=== PATIENT | female | born 1965 | race Caucasian/White ===

== ENCOUNTER 2020-10-22 08:48 | Emergency (ER) | payer OTHER, SELFPAY ==
[2020-10-22 08:54] VITALS: BP 188/104; PULSE 112; RESP 16; TEMP 37.1; O2SAT 96
--- NOTE | 2020-10-22 10:24 | ED.GENADULT ---
HPI - General Adult General Chief complaint: Extremity Problem,Nontraumatic Stated complaint: leg pain Time Seen by Provider: 10/22/20 09:41 Source: patient History of Present Illness HPI narrative: Patient is a 55 y/o male complain of chronic left leg worsening for last 2 days. She states she has chronic pain for years. She describes her pain as shocking sensation and rates it as 10/10. She states that laying down aggravates her pain and walking helps with her pain. She also has some back pain. She has no difficulty with urination or bowel movement. She is able to ambulate. Related Data Allergies Allergy/AdvReac Type Severity Reaction Status Date / Time No Known Allergies Allergy Verified 10/22/20 08:58 Review of Systems Constitutional: Constitutional: Denies chills, Denies fever(s), Denies headache(s) and Denies weakness Eyes: Eyes: Denies blurry vision ENT: Denies headache(s) and Denies neck pain Cardiovascular: Cardiovascular: Denies chest pain and Denies dyspnea Respiratory: Respiratory: Denies cough and Denies dyspnea Gastrointestinal: Gastrointestinal: Denies abdominal pain, Denies diarrhea, Denies nausea and Denies vomiting Genitourinary: Genitourinary: Denies hematuria and Denies dysuria Musculoskeletal: Musculoskeletal: Reports as per HPI, Reports back pain, Denies neck pain and Reports other (left leg pain) Neurologic: Denies headache(s) and Denies weakness [facility] Social History Social History Smoking status: Former smoker Alcohol intake: never Exam Const: General: no acute distress and well developed Orientation/consciousness: oriented to person, oriented to place, oriented to time and patient oriented x3 HENMT: Head: normocephalic Ears: external ears normal General nose exam: Normal external nose present Eyes: General: appearance normal, both eyes and all related structures Conjunctivae: conjunctivae normal Neck: Neck: normal visual inspection and full ROM Chest: Chest palpation & inspection: normal inspection of the chest and no tenderness Resp: Effort & Inspection: normal respiratory effort Auscultation: clear to auscultation bilaterally Cardio: Rate: regular rate Rhythm: regular rhythm GI: GI Palp: No abdominal tenderness and Yes Soft to palpation Skin: General skin exam: normal color and turgor normal Neuro: General: oriented to person, oriented to place, oriented to time and patient oriented x3 Cognition (Neuro): normal cognition Extrem: General: normal to inspection, full ROM and no pedal edema Right lower extremity: foot Details: other (right leg in braces) Left lower extremity: full ROM Psych: Appearance: grossly normal Mental Status: mental status grossly normal Affect: normal affect Course Reevaluation(s) Reevaluation #1: Offered patient steroids and muscle relaxer. However, patient declined and stated that those usually do not help. Date: 10/22/20 Vital Signs Vital signs: Vital Signs Temperature 37.1 C 10/22/20 08:54 Pulse Rate 112 H 10/22/20 08:54 Respiratory Rate 16 10/22/20 08:54 Blood Pressure 188/104 H 10/22/20 08:54 Pulse Oximetry 96 10/22/20 08:54 Temperature 36.8 C 10/22/20 11:21 Pulse Rate 93 10/22/20 11:21 Respiratory Rate 16 10/22/20 11:21 Blood Pressure 171/99 H 10/22/20 11:21 Pulse Oximetry 99 10/22/20 11:21 Medical Decision Making Vital Signs Vital Signs: Vital Signs Temperature 37.1 C 10/22/20 08:54 Pulse Rate 112 H 10/22/20 08:54 Respiratory Rate 16 10/22/20 08:54 Blood Pressure 188/104 H 10/22/20 08:54 Pulse Oximetry 96 10/22/20 08:54 Temperature 36.8 C 10/22/20 11:21 Pulse Rate 93 10/22/20 11:21 Respiratory Rate 16 10/22/20 11:21 Blood Pressure 171/99 H 10/22/20 11:21 Pulse Oximetry 99 10/22/20 11:21 Lab Data Result diagrams: 10/22/20 10:31 10/22/20 10:31 Labs: Lab Results 04
[2020-10-22 10:39] LABS: Basophils Absolute Auto 0.1 K/mm3 (0.0-0.1); Basophils Percent Auto 0.8 % (0.2-1.2); Eosinophils Absolute Auto 0.2 K/mm3 (0-0.3); Eosinophils Percent Auto 2.1 % (0-4.4); Hematocrit 41.4 % (37.0-47.0); Hemoglobin 13.4 g/dL (12.0-15.0); Immature Granulocyte Absolute 0.02 K/mm3 (0.00-0.031); Immature Granulocyte Percent A 0.2 % (0-0.5); Lymphocytes Absolute Auto 2.46 K/mm3 (0.9-3.2); Lymphocytes Percent Auto 29.2 % (18.3-44.2); Mean Corpuscular HGB Conc 32.4 g/dl (32-36); Mean Corpuscular Hemoglobin 29.4 pg (26-34); Mean Corpuscular Volume 90.8 fl (80-100); Mean Platelet Volume 9.3 fl (7.4-10.4); Monocytes Absolute Auto 0.5 K/mm3 (0.1-0.6); Neutrophils Absolute Auto 5.2 K/mm3 (1.3-6.7); Neutrophils Percent Auto 61.7 % (45.5-73.1); Platelet Count Result 314 k/mm3 (150-375); Red Blood Count 4.56 M/mm3 (4.2-5.4); Red Cell Distribution Width 12.7 % (11.5-14.5); White Blood Count 8.4 K/mm3 (4.5-10.0)
[2020-10-22 10:48] LABS: Anion Gap 7 mmol/L (8-16); Blood Urea Nitrogen 13 mg/dL (7-17); Calcium 9.4 mg/dL (8.4-10.2); Carbon Dioxide 28 mmol/L (22-30); Chloride 105 mmol/L (98-107); Estimated CRCL calculation 88 ml/min; Estimated Glomerular Filt Rate > 60; Glucose 116 mg/dL (65-105); Potassium 4.6 mmol/L (3.4-5.0); Sodium 140 mmol/L (137-145)
[2020-10-22] MEDS: KETOROLAC 15 MG/ML VIAL (*BKC) IV PUSH (10:59)
[2020-10-22 11:21] VITALS: BP 171/99; PULSE 93; RESP 16; TEMP 36.8; O2SAT 99
== END 2020-10-22 11:22 | disposition home or self-care (01) ==
PROVIDERS: Emergency Provider Emergency Medicine; PCP Family Medicine
DX: M54.32 Sciatica, left side (principal); M79.605 Pain in left leg; G89.29 Other chronic pain; Z87.891 Personal history of nicotine dependence
CPT/HCPCS: 36415; 80048; 85025; 96374; 99284; J1885

== ENCOUNTER 2025-06-02 11:47 | Emergency (ER) | payer OTHER, SELFPAY ==
--- NOTE | ~2025-06-02 | XR_ITS ---
Examination: XR hand RT 2V Clinical History: injury, pain in 2nd MCP joint, pt unable to remove ring Comparison: None Technique: 3 views right hand Findings/impression: 1. No fracture or dislocation. Reviewed, dictated and finalized at location R. [employer] SYSTEM[employer] ENGINEER
[2025-06-02 11:51] VITALS: BP 104/65; PULSE 73; RESP 16; TEMP 37.1; O2SAT 98
--- NOTE | 2025-06-02 13:26 | ED.EXTPRO ---
HPI - Extremity Problem General Chief complaint: Extremity Problem,Nontraumatic Stated complaint: broken knuckle? R hand Time Seen by Provider: 06/02/25 13:04 Source: patient Mode of arrival: ambulatory Limitations: no limitations History of Present Illness HPI Narrative: 60 years old white female came to the ED by private car complaining of pain at the dorsal side of right hand after smashed in the hand at the sliding door at home yesterday. No other injuries. Related Data Allergies Allergy/AdvReac Type Severity Reaction Status Date / Time No Known Allergies Allergy Verified 06/02/25 11:54 Review of Systems Review of Systems: All systems reviewed & are unremarkable except as noted in HPI and below PMFSH Social History Social History Smoking status: Former smoker Alcohol intake: never Exam Narrative: General appearance: Well-developed, well-nourished Skin: Normal color Head: Normocephalic, nontraumatic Vascular: Normal peripheral pulses, normal capillary refill. Musculoskeletal: Diffuse tenderness at the dorsal side of the right hand, no bruises, no swelling, no deformity Neurologic: Alert and oriented ?3, Course Vital Signs Vital signs: Vital Signs Temperature 37.1 C 06/02/25 11:51 Pulse Rate 73 06/02/25 11:51 Respiratory Rate 16 06/02/25 11:51 Blood Pressure 104/65 06/02/25 11:51 Pulse Oximetry 98 06/02/25 11:51 Oxygen Delivery Room Air 06/02/25 11:51 Temperature 37.1 C 06/02/25 11:51 Pulse Rate 73 06/02/25 11:51 Respiratory Rate 16 06/02/25 11:51 Blood Pressure 104/65 06/02/25 11:51 Pulse Oximetry 98 06/02/25 11:51 Oxygen Delivery Room Air 06/02/25 11:51 MDM MDM Narrative Medical decision making narrative: Differential diagnosis include fracture versus contusion X-ray of the right hand showed no acute osseous abnormality Differential Diagnosis Differential Diagnosis: Fracture versus contusion Critical Care Time Critical Care Time Critical Care Time: No Discharge Plan Discharge Clinical Impression: Contusion of hand, right Patient Disposition: Home Condition: Stable Instructions: Contusion in Adults (ED) Additional Instructions: RETURN IF SYMPTOMS ARE WORSENING , CALL YOUR FAMILY PHYSICIAN FOR APPOINTMENT, TAKE TYLENOL IBUPROFEN NEEDED FOR ACHES AND PAIN, CONTINUE HOME MEDICATIONS. KEEP HAND ELEVATED, ICE PACK 20 MINUTES/HOUR FOR THE NEXT 24 HOURS Patient Language: Hebrew Follow-up/Referrals: Cheli,Indira Mosher APRN [Primary Care Provider, Unknown]
--- OUTSIDE RECORDS SUMMARY | 2025-06-02 13:26 | XMS_ITS | Clinical Summary ---
Author Organization [facility] Address [address] [place] [address] Phone Care Team Providers Care Business Advisor Name Role Phone Indira Bower NP Primary Care Provider +1- [phone] Allergies No known active allergies Medications DULoxetine DR (CYMBALTA) 30 mg capsule Take 30 mg by mouth daily Active methadone (DOLOPHINE) 10 mg tablet TAKE 1 TABLET BY MOUTH EVERY 6 TO 8 HOURS WITH ADDITIONAL 1/2 TABLET AT BEDTIME. MAXIMUM DAILY DOSE IS 3 AND 1/2 TABLETS [address] (CYMBALTA) 60 mg capsule Take 1 capsule (60 mg total) by mouth 90 mg hs Active amLODIPine (NORVASC) 10 mg tablet Take 1 tablet (10 mg total) by mouth daily 90 tablet 3 5 Active aspirin 81 mg enteric coated tablet Take 1 tablet (81 mg total) by mouth daily 90 tablet 3 5 Active albuterol HFA (ProAir HFA) 90 mcg/actuation inhalerIndication s:Mixed simple and mucopurulent chronic bronchitis (HCC) Inhale 2 puffs every 4 (four) hours as needed for wheezing or shortness of breath 18 g 3 5 Active blood pressure monitor kitIndications:Hy pertension, essential 1 Units once for 1 dose Use to check blood pressure daily 1 kit 5 Active lisinopriL (PRINIVIL,ZESTRIL ) 20 mg tablet Take 1 tablet (20 mg total) by mouth daily 90 tablet 3 06/16/12/12/19 26 Active inhalational spacing device spacerIndications :Mixed simple and mucopurulent chronic bronchitis (HCC) 1 Units as needed (use with inahlers) 1 each 5 Active ibandronate (BONIVA) 150 mg tablet Take 1 tablet (150 mg total) by mouth every 30 (thirty) days Take in AM with glass of water prior to food, don't lie down for 30 minutes. 3 tablet 4 5 01/19/20 26 Active budesonide-glycop yr-formoterol (Breztri Aerosphere) 160-9-4.8 mcg/actuation inhalerIndication s:Mixed simple and mucopurulent chronic bronchitis (HCC) INHALE 2 PUFFS BY MOUTH TWICE DAILY 10.7 g 5 Active Active Problems Problem Noted Date Diagnosed Date Pre-diabetes 12/11/2024 Assessment & Plan (12/12/2024 10:30 AM CDT): Documented on recent lab work. A1c 6.0. Nonpharmacological interventions such as low carb diet, high in vegetables and low glycemic fruits discussed. Educated on importance of physical activity. Encourage diabetic eye exam. Discussed signs and symptoms of hypoglycemia and need to present to the ED. Follow up in 6 months or sooner if needed. Patient verbalizes understanding regarding plan of care and all questions answered. Mixed simple and mucopurulent chronic bronchitis 11/28/2024 Assessment & Plan (12/11/2024 3:33 PM CDT): Orders: inhalational spacing device spacer; 1 Units as needed (use with inahlers) Assessment & Plan (11/28/2024 12:04 PM CDT): Orders: albuterol HFA (ProAir HFA) 90 mcg/actuation inhaler; Inhale 2 puffs every 4 (four) hours as needed for wheezing or shortness of breath wldgpqqviy-nzxuyvnn-jgopawlkpz (Breztri Aerosphere) 160-9-4.8 mcg/actuation inhaler; Inhale 2 puffs 2 (two) times a day Morbid obesity with BMI of 40.0-44.9, adult 08/2024 Assessment & Plan (11/28/2024 12:04 PM CDT): Discussed the patient's BMI. The BMI is above average. BMI management plan is completed. BMI Follow-up includes: nutrition counseling, exercise counseling and education provided. Encouraged regular physical activity--moderate activity for a total of 150 minutes per week over 3-5 days. Encouraged healthy diet with regular fresh fruits and vegetables limited in processed carbohydrates. Hypertension, essential 11/28/2024 Assessment & Plan (12/11/2024 3:33 PM CDT): Assessment & Plan (11/28/2024 12:04 PM CDT): Orders: Albumin Creatinine Ratio, Urine; Future Comprehensive metabolic panel; Future blood pressure monitor kit; 1 Units once for 1 dose Use to check blood pressure daily Ambulatory referral to Cardiology; Future Transthoracic Echo (TTE) Complete W Doppler/CF; Future ECG 12 lead; Future Mixed hyperlipidemia 11/28/2024 Assessment & Plan (11/28/2024 12:04 PM CDT): Historically has had elevated cholesterol. Not treated currently. Repeat levels pending. Orders: Lipid panel; Future Presence of neurostimulator 11/28/2024 Overview (11/28/2024): dorsal column stimulation system with a Medtronic system Encounter for screening colonoscopy 11/28/2024 Resolved Problems Problem Noted Date Diagnosed Date Resolved Date Sciatic nerve pain, left 11/28/202408/2024 Foot arch pain 11/28/2024 11/28/2024 Failed back surgical syndrome 11/28/2024 11/28/2024 Elevated blood sugar 11/28/2024 025 Assessment & Plan (11/28/2024 12:04 PM CDT): A1c pending Orders: Hemoglobin A1c; Future Acute right-sided low back pain with sciatica 06/14/20 19 11/28/2024 Ankle contracture 07/28/2011 11/28/2024 Arthralgia of ankle 07/27/2011 11/29/19 25 Encounters Date Type Department Care Team Description 05/30/2025 Hospital Encounter [facility] [address] [place] [id number] Ronni Last MD 03/08/[address] [facility] Primary Care at [address] [address] Indira Bower NP from Last 3 Months Immunizations Immunization Administration Dates Next Due Influenza, Quadrivalent, Spl it, Preservative Free, Intramuscular 04/14/2021 Pneumococcal Polysaccharide PPV23 04/21/2018 Surgical History Surgery Date Site/Laterality Comments APPENDECTOMY 06/28/1987 BACK SURGERY 06/28/1999 x3,1999,2000,2020 lumbar ANKLE SURGERY Right x3 SECTION 12-30-82 ABDOMINAL SURGERY 1963 x 3 INSERTION / PLACEMENT / REVISION NEUROSTIMULATOR 06/28/2019 BREAST CYST ASPIRATION 06/28/1987 - 06/27/1988 Right benign Medical History Medical History Date Comments Hypertension Hypertension Hx 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 Hx Other Medical bowel surgery, back surgery, Depression Osteoporosis Asthma Anxiety Neuromuscular disorder Chronic bronchitis (HCC) Family History Medical History Relation Name Comments Heart disease Father Stroke Father Arthritis Mother Cancer Mother Relation Name Status Comments Father Mother Social History Tobacco Use Types Packs/Day Years Used Date Smoking Tobacco: Former Cigarettes 1 30.9 S tarted: 11/21/1983 Passive Smoke Exposure: Past Smokeless Tobacco: Never Alcohol Use Standard Drinks/Week Comments Yes 0 (1 standard drink = 0.6 oz pur e alcohol) AUDIT-C Answer Date Recorded Q1: How often do you have a drink containing alcohol? Never 11/28/2024 Q2: How many drinks containi ng alcohol do you have on a typical day when you are drinking? Patient does not drink Q3: How often do you have si x or more drinks on one occasion? 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 Gender Identity Not on file Sexual Orientation Not on file Obstetrics History Para Term AB IAB SAB Ectopic Multiple Livin g Live Births 1 1 Date Outcome GA Total Labor Labor/2nd/3rd Weight Sex Type Anes PTL Jessie A1 A5 Name Clin Last Filed Vital Signs Vital Sign Reading Time Taken Comments Blood Pressure 145/82 12/19/2024 10:24 AM CDT Pulse 77 12/19/2024 10:24 AM CDT Temperature 36.3 C (97.4 F) 12/11/2024 2:59 PM CDT Respiratory Rate 16 12/11/2024 2:59 PM CDT Oxygen Saturation 97% 12/11/2024 2:59 PM CDT Inhaled Oxygen Concentration - - Weight 99.8 kg (220 lb) 01/09/2025 8:34 AM CDT Height 152.4 cm (5') 01/09/2025 8:34 AM CDT Body Mass Index 42.97 01/09/2025 8:34 AM CDT Plan of Treatment Health Maintenance Due Date Last Done Comments Cervical Cancer Screening 1965 Colon Cancer Screening-Colonoscopy 1963 DTaP/Tdap/Td Vaccine (1 - Tdap) 1974 Zoster Vaccine (1 of 2) 2013 Pneumococcal vaccine <65 (2 of 2 - PCV) 04/21/2019 04/21/2018 Influenza Vaccine (#1) 2025 04/14/2021 Covid-19 Vaccine (3 - Moderna risk series) 11/28/2025 05/12/2021, 04/14/2021 Postponed from 06/09/2021 (Patient declined, but will receive in the future) Depression Screening 11/28/2025 11/28/2024 Regular Well Visit/Exam 18-64 11/28/2025 11/28/2024 Breast Cancer Screening-Mammogram 01/10/2026 01/10/2025 Lung Cancer Screening 01/10/2026 01/09/2025 Hepatitis C Screening Completed 11/28/2024 Hepatitis B Screening Discontinued Medical Devices Implanted Type Area Outreach And Education Social Worker Device Identifier Shelf Expiration Date Model / Serial / Lot Neurostimulator Neurostimulator Back Medtronic [id number] / / [id number] Neurostimulator Neurostimulator Back Medtronic [id number] / / [id number] Procedures Procedure Name Priority Date/Time Associated Diagnosis Comments SCREENING MAMMOGRAM BILATERAL W YOMI Schedule Routine, Read Routine (OP Routine) 01/10/2025 11:38 AM CDT Breast cancer screening by mammogram CT LUNG CANCER SCREENING Schedule Routine, Read Routine (OP Routine) 01/09/2025 8:34 AM CDT History of nicotine dependence HEPATITIS C ANTIBODY Routine 11/28/2024 10:40 AM CDT Need for hepatitis C screening test from Last 3 Months or Most Recently Relevant to Health Maintenance Results * Screening Mammogram Bilateral W Yomi (01/10/2025 11:38 AM CDT) Anatomical Region Laterality Modality Breast Bilateral Mammography Impressions 01/10/2025 11:55 AM CDT Bilateral No evidence of malignancy in either breast. OVERALL BI-RADS FINAL ASSESSMENT: 1 - Negative RECOMMENDATION: Recommend bilateral annual screening mammography. Narrative 01/10/2025 11:55 AM CDT EXAMINATION: Screening Mammogram Bilateral W Yomi: 01/10/2025 COMPARISON: This is the patient's baseline mammogram. TECHNIQUE: Mammography was performed with 2D and digital breast tomosynthesis (DBT) images. CAD was utilized. BREAST PARENCHYMAL COMPOSITION: The breasts are almost entirely fatty. FINDINGS: Bilateral There is no suspicious mass, calcification, or architectural distortion in either breast. Indira Bower CARDIOPULMONARY PHYSICAL THERAPIST IMG MAMMO PROCEDURES Final Result * CT Lung Cancer Screening (01/09/2025 8:34 AM CDT) Anatomical Region Laterality Modality Chest N/A Computed Tomogra phy 01/17/2025 7:23 AM CDT Narrative 01/17/2025 7:25 AM CDT EXAM DESCRIPTION: CT LUNG CANCER SCREENING REASON FOR STUDY: Screening CT of the chest in a former smoker with a 20 pack year smoking history. Additional history: None. TECHNIQUE: Low dose CT scan of the chest was performed without intravenous contrast using helical scanning technique. The exam extends from the lung apices through the lung bases. Automatic exposure control was used as a dose optimization technique. NOTE: This study was performed for the specific purposes of lung cancer screening and is not an alternative to diagnostic chest CT. RADIATION DOSE: CT dose index volume (CTDIvol) = 5.1 mGy COMPARISON: None FINDINGS: SMOKING RELATED LUNG DISEASE: Mild emphysematous change. LUNG NODULES: No suspicious pulmonary nodules. CORONARY ARTERY CALCIFICATION: None OTHER: The heart is normal in size. No mediastinal or hilar lymphadenopathy seen. No pneumothorax or pleural effusion is present. Neurostimulator leads are noted extending into the midthoracic region. There is a right curvature of the thoracic spine. IMPRESSION: 1. No suspicious pulmonary nodules. Lung-RADS category 1: Negative. Recommendation: Low dose Screening CT of chest in 12 months. THIS IS AN ELECTRONICALLY VERIFIED FINAL REPORT 01/17/2025 7:25 AM - Electronically signed by Quincy Smith M.D. BS: BS Report ID: [id number] Reading Location: [place] [address] Procedure Note Quincy Smith MD - 01/17/2025 EXAM DESCRIPTION: CT LUNG CANCER SCREENING REASON FOR STUDY: Screening CT of the chest in a former smoker with a20 pack year smoking history. Additional history: None. TECHNIQUE: Low dose CT scan of the chest was performed without intravenous contrast using helical scanning technique. The exam extends from the lung apices through the lung bases. Automatic exposure control was used as adose optimization technique. NOTE: This study was performed for the specific purposes of lung cancer screening and is not an alternative to diagnostic chest CT. RADIATION DOSE: CT dose index volume (CTDIvol) = 5.1 mGy COMPARISON: None FINDINGS: SMOKING RELATED LUNG DISEASE: Mild emphysematous change. LUNG NODULES: No suspicious pulmonary nodules. CORONARY ARTERY CALCIFICATION: None OTHER: The heart is normal in size. No mediastinal or hilarlymphadenopathy seen. No pneumothorax or pleural effusion is present. Neurostimulatorleads are noted extending into the midthoracic region. There is a rightcurvature of the thoracic spine. IMPRESSION: 1. No suspicious pulmonary nodules. Lung-RADS category 1: Negative. Recommendation: Low dose Screening CT of chest in 12 months. THIS IS AN ELECTRONICALLY VERIFIED FINAL REPORT 01/17/2025 7:25 AM - Electronically signed by Quincy Smith M.D. BS: ARBEN Report ID: [id number] Reading Location: [id number] Indira Bower CARDIOPULMONARY PHYSICAL THERAPIST IMG CT PROCEDURES Final Re sult * Hepatitis C antibody Blood (11/28/2024 10:40 AM CDT) Hep C Ab Nonreactive Nonreactive Comment: Interpretive Data Nonreactive: Antibodies to HCV not detected. Does NOT exclude the possibility of recent exposure to HCV. Equivocal: Equivocal for HCV antibodies. Supplemental molecular testing will be automatically performed to determine infection status in accordance with current CDC screening recommendations. Reactive: Positive for HCV antibodies. This may represent current or past HCV infection. Supplemental molecular testing will be automatically performed to determine current infection status in accordance with current CDC screening recommendations. Interpretive data was last revised on 2019. Blood 11/28/2024 10:4 0 AM CDT 11/28/2024 2:14 PM CDT Indira Bower NP LAB MICROBIOLOGY - GENERAL ORDERABLES Final Result [place] [address] [facility] Department [place] [address] from Last 3 Months or Most Recently Relevant to Health Maintenance Insurance [facility] Care Teams Business Advisor Relationship Specialty Start Date End Date Indira Bower NP [address] [facility] [address] [place] [address] PCP - General Internal Medicine 11/28/24
--- OUTSIDE RECORDS SUMMARY | 2025-06-02 13:26 | XMS_ITS | Encounter Summary ---
Author Organization [facility] Healthcare Address [address] [place] [address] Care Team Providers Care Rope Tow Operator Name Role Phone Indira Bower NP Primary Care Provider +1- [phone] Reason for Visit * Auth/Cert (Routine) Specialty Diagnoses / Procedures Referred By Contac t Referred To Contact Diagnoses Encounter for screening colonoscopy Encounter for screening colonoscopy [Z12.11] Procedures WI COLONOSCOPY FLX DX W/COLLJ SPEC WHEN PFRMD COLONOSCOPY Referral ID Status Reason Start Date Expiration Date Visits Re quested Visits Authorized [id number] 1 1 Encounter Details Date Type Department Care Team (Late st Contact Info) Description 05/30/2025 Hospital Encounter [facility] [address] [place] [address] Ronni Last MD [address] [place] [address] [address] [place] [address] Social History Tobacco Use Types Packs/Day Years [...] on file 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 Never 11/28/2024 9:36 AM Venkat Murillo MA Q2: How many drinks containing alcohol do you have on a typical day when you are drinking? Patient does not drink 11/28/2024 9:36 AM Ivy Murillo MA Q3: How often do you have six or more drinks on one occasion? Never 11/28/2024 9:36 AM Venkat Murillo MA documented as of this encounter Plan of Treatment Not on file documented as of this encounter Visit Diagnoses Diagnosis Encounter for screening colonoscopy- Primary documented in this encounter Admitting Diagnoses Diagnosis Encounter for screening colonoscopy documented in this encounter Care Teams Rope Tow Operator Relationship Specialty Start Date End Date Indira Bower NP [address] [facility] [address] [place] [address] PCP - General Internal Medicine 11/28/24 documented as of this encounter
--- OUTSIDE RECORDS SUMMARY | 2025-06-02 13:26 | XMS_ITS | Clinical Summary ---
Author Organization [facility] Address [address] [place] [address] Care Team Providers Care Bark Fitter Name Role Phone Abbe Duff MD Primary Care Provider [phone] Source Comments [facility],non-owned Affiliates and Associated Physician Practices is amultiple site organization consisting of ambulatory clinics and hospital sitesin [place], [place], [place] and [place]. This disclosure is being madepursuant to the Care Everywhere program and may not contain all information available regarding this patient. Last updated 18.[facility] Allergies No known active allergies Medications * Be aware that medications may not be up to date on this document. Alwaysverify current medications with the patient. ibuprofen (MOTRIN) 800 MG tablet Take 800 mg by mouth every 6 hours as needed for Pain 9 Active albuterol HFA (PROVENTIL;VENT DENIS;PROAIR) 108 (90 Base) MCG/ACT inhaler as needed 9 Active cloNIDine (CATAPRES) 0.2 MG tabletIndicatio ns:Take if BP exceeds 145/90 Take by mouth once daily Reasons: Take if BP exceeds 145/90 0 9 Active DULoxetine (CYMBALTA) 30 MG capsule Take 30 mg by mouth once daily Active amLODIPine (NORVASC) 10 MG tablet Take 10 mg by mouth once daily 0 Active albuterol-iprat ropium (DUO-NEB) 0.5-2.5 (3) MG/3ML nebulizer solution USE 1 AMPULE IN NEBULIZER 4 TIMES DAILY FOR 7 DAYS THEN USE NEEDED 0 Active pregabalin (LYRICA) 300 MG capsule Take 300 mg by mouth 2 times daily 0 Active hydroCHLOROthia zide (HYDRODIURIL) 25 MG tablet TAKE 1 TABLET BY MOUTH ONCE DAILY IN THE MORNING 0 Active lisinopril (PRINIVIL; ZESTRIL) 40 MG tablet Take 40 mg by mouth once daily 0 Active vitamin D, ergocalciferol, (DRISDOL) 1.25 MG (49545 UT) capsule TK 1 C PO Q WK 0 Active clonazePAM (KLONOPIN) 0.5 MG tablet Take 0.5 mg by mouth as needed 0 Active omeprazole (PRILOSEC) 20 MG capsule TAKE 1 CAPSULE BY MOUTH EVERY DAY BEFORE A MEAL 1 Active WIXELA INHUB 250-50 MCG/DOSE inhaler INHALE 1 PUFF BY MOUTH EVERY 12 HOURS 1 Active busPIRone (BUSPAR) 10 MG tablet Take 10 mg by mouth 2 times daily 1 Active methocarbamol (ROBAXIN) 750 MG tablet Take 1 (one) tablet by mouth every 6 hours 120 tablet 1 Active HYDROcodone-anmol taminophen (NORCO) 10-325 MG tablet Take 1 (one) tablet by mouth every 6 hours as needed for Pain 12 tablet 1 Active Active Problems Problem Noted Date Diagnosed Date Acute right-sided low back pain with sciatica Ankle contracture 07/28/2011 Arthralgia of ankle 07/27/2011 Sciatic nerve pain, left Failed back surgical syndrome Social History Tobacco Use Types Packs/Day Years Used Date Smoking Tobacco: Former Cigarettes 1 34 1 983 - 2017 Smokeless Tobacco: Never Tobacco Cessation:Counseling Given: No Alcohol Use Standard Drinks/Week Comments No 0 (1 standard drink = 0.6 oz pur e alcohol) Comments No Sex and Gender Information Value Date Recorded Sex Assigned at Not on file Legal Sex Female 3:21 PM HEEL TURNER Gender Identity Not on file Sexual Orientation Not on file Last Filed Vital Signs Vital Sign Reading Time Taken Comments Blood Pressure 170/110 10/28/2020 2:30 PM CDT Pulse 100 10/28/2020 11:18 AM CDT Temperature 37 C (98.6 F) 10/28/2020 11:18 AM CDT Respiratory Rate 18 10/28/2020 11:18 AM CDT Oxygen Saturation 98% 10/28/2020 2:33 PM CDT Inhaled Oxygen Concentration 96% 06/17/2019 4 :30 PM HEEL TURNER Weight 90.7 kg (200 lb) 10/28/2020 11:18 AM CDT Height 152.4 cm (5') 10/28/2020 11:18 AM CDT Body Mass Index 39.06 10/28/2020 11:18 AM CDT Plan of Treatment Health Maintenance Due Date Last Done Comments COLOGUARD (AGES 45-75) - COL ON CA SCREENING 1963 COLON MONITORING 1963 COLONOSCOPY - COLON CA SCREENING 1963 CT COLONOGRAPHY - COLON CA SCREENING 1963 Colorectal Cancer Screening 1963 FIT - COLON CA SCREENING 1963 FLEX SIG - COLON CA SCREENING 1963 LIPID TESTING 1963 MAMMOGRAM 1963 Opioid Medication Agreement - Annual 1963 HIV SCREENING 1978 HEPATITIS C SCREENING 01/03/1981 DTAP/TDAP/TD VACCINES (1 - Tdap) 1982 Cervical Cancer Screening 01/09/1984 PAP SMEAR 01/09/1984 PAP with HPV 1993 PNEUMOCOCCAL VACCINE 50+ (1 of 1 - PCV) 2013 ZOSTER VACCINE (1 of 2) 2013 DEPRESSION SCREENING 06/28/2024 COVID-19 VACCINE (1 - 2024-2 6 season) 2025 INFLUENZA VACCINE (#1) 2025 Respiratory Syncytial Virus (RSV) Vaccine Pt: or over 60 yrs (1 - 1-dose 75+ series) 2038 HEPATITIS B VACCINE Aged Out No longe r eligible based on patient's age to complete this topic HIB VACCINE Aged Out No longer eligi ble based on patient's age to complete this topic HPV VACCINE Aged Out No longer eligi ble based on patient's age to complete this topic MENINGOCOCCAL (Group B) VACC INE SHARED DECISION-MAKING Aged Out No longer eligibl e based on patient's age to complete this topic MENINGOCOCCAL GROUPS A/C/Y/W VACCINE Aged Out No longer eligible b ased on patient's age to complete this topic Medical Devices Implanted Type Area Missile Mechanic Device Identifier Shelf Expiration Date Model / Serial / Lot Screw Set Ti Spnl Brk Off Cd Hzn Nonster Implanted:Qty: 10 on 06/14/2019 by Sheryl Barakat MD at [facility] N/A: Spine Medtronic Sofamor [employer] [id number] / / Graft Bone Canc 4-9.5mm 15cc Frzdr Chp Implanted:Qty: 1 on 06/14/2019 by Sheryl Barakat MD at [facility] N/A: Spine Allosource 09/12/2023 [id number] / / Spcr Spnl [id number] Cpstn Cntrl 12d Peek Implanted:Qty: 2 on 06/14/2019 by Davian Schaeffer MD at [facility] N/A: Spine Lumbar Medtronic Sofamor [employer]anek Spine 12/16/2026 [id number] / / [id number] Spcr Spnl [id number] Cpstn Cntrl 12d Peek Implanted:Qty: 2 on 06/14/2019 by Davian Schaeffer MD at [facility] N/A: Spine Lumbar Medtronic Sofamor [employer]anek Spine 12/16/2026 [id number] / / [id number] Sj Spnl 120mm 5.5mm Cd Hzn Crv Ti Cp4 Implanted:Qty: 2 on 06/14/2019 by Davian Schaeffer MD at [facility] N/A: Spine Lumbar Medtronic Inc [id number] / / 20mm Connector Implanted:Qty: 1 on 06/14/2019 by Davian Schaeffer MD at [facility] N/A: Spine Lumbar Medtronic Inc [id number] / / Screw Set .25in Std 32 Thrd Spne Cap Implanted:Qty: 1 on 06/14/2019 by Davian Schaeffer MD at [facility] N/A: Spine Lumbar Medtronic Sofamor [employer] [id number] / / Screw 5mm 45mm Ma Spne Solera Cd Hzn Implanted:Qty: 2 on 06/14/2019 by Sheryl Barakat MD at [facility] N/A: Spine Medtronic Sofamor [employer] [id number] / / Screw 6.5mm 45mm Ma Spne Solera Cd Hzn Implanted:Qty: 1 on 06/14/2019 by Sheryl Barakat MD at [facility] N/A: Spine Medtronic Sofamor [employer] [id number] / / Screw 5.5mm 40mm Ma Spne Solera Cd Hzn Implanted:Qty: 1 on 06/14/2019 by Sheryl Barakat MD at [facility] N/A: Spine Medtronic Sofamor [employer] [id number] / / Screw 7.5mm 40mm Ma Spne Solera Cd Hzn Implanted:Qty: 2 on 06/14/2019 by Sheryl Barakat MD at [facility] N/A: Spine Medtronic Sofamor [employer] [id number] / / Screw 7.5mm 45mm Ma Spne Solera Cd Hzn Implanted:Qty: 1 on 06/14/2019 by Sheryl Barakat MD at [facility] N/A: Spine Medtronic Sofamor [employer] [id number] / / Screw 6.5mm 70mm Ma Spne Solera Cd Hzn Implanted:Qty: 1 on 06/14/2019 by Sheryl Barakat MD at [facility] N/A: Spine Medtronic Sofamor [employer] [id number] / / Screw 7.5mm 70mm Ma Spne Cocr 5.5mm Sj Implanted:Qty: 2 on 06/14/2019 by Sheryl Barakat MD at [facility] N/A: Spine Medtronic Sofamor [employer] Inc [id number] / / Graft Bone Grftn Dbm 5cc Ptty Jr - [id number] Implanted:Qty: 1 on 06/14/2019 by Sheryl Barakat MD at [facility] N/A: Spine Osteotech Inc 02/01/2022 [id number] / [id number] / Lead Ns 65cm Spc Surescan 3 Clmn 16 Implanted:Qty: 1 on 09/19/2020 by Alexis Waldrop MD at [facility] N/A: Spine Thoracic Medtronic Inc 07/01/2024 [id number] / / [id number] Description:RS Injex Bi-Wing [place] Accessory Kit Implanted:Qty: 1 on 09/19/2020 by Alexis Waldrop MD at [facility] N/A: Spine Thoracic Medtronic Neurological 06/17/2023 [id number] / / [id number] Nrstm Impl Chrnc Pain Rs 2 - Intellis Adaptivestim Implanted:Qty: 1 on 09/19/2020 by Alexis Waldrop MD at [facility] named [facility] Right: Back Medtronic Neurological 12/09/2020 [id number] / [id number] / Insurance [facility] Advance Directives * Full Code (Latest Code Status on File) Date Activated Date Inactivated Comments 06/14/2019 6:39 PM 06/20/2019 5:00 PM Care Teams Bark Fitter Relationship Specialty Start Date End Date Abbe Duff MD [address] [place] [address] PCP - General 01/09/19
--- OUTSIDE RECORDS SUMMARY | 2025-06-02 13:26 | XMS_ITS | Clinical Summary ---
Author Organization [facility] Address [address] [place] [address] Care Team Providers Care Ict Security Specialist Name Role Phone Abbe Duff MD Primary Care Provider [phone] Social History Tobacco Use Types Packs/Day Years Used Date Smoking Tobacco: Never Assessed Comments Unknown Sex and Gender Information Value Date Recorded Sex Assigned at Not on file Legal Sex Female 8:16 PM CDT Gender Identity Not on file Sexual Orientation Not on file Last Filed Vital Signs Vital Sign Reading Time Taken Comments Blood Pressure 183/101 09/16/2015 1:44 PM CDT Pulse - - Temperature - - Respiratory Rate - - Oxygen Saturation - - Inhaled Oxygen Concentration - - Weight 85.7 kg (189 lb) 09/16/2015 1:44 PM CDT Height 152.4 cm (5') 09/16/2015 1:44 PM CDT Body Mass Index 36.91 09/16/2015 1:44 PM CDT Plan of Treatment Health Maintenance Due Date Last Done Comments Cervical Cancer Screening Pa p Smear (Age 30 to 64) Every 3 Years 1963 Colorectal Cancer Screening Colonoscopy (10 Years) 1963 Annual Physical 1966 Hepatitis C 1981 DTaP, Tdap and Td Vaccines ( 1 - Tdap) 1982 Cervical Cancer Screening Pa p with HPV Testing (Age 30 to 64) Every 5 Years 1993 Cervical Cancer Screening with HPV 1993 Mammogram Screening 2003 Pneumococcal Vaccine: 50+ Ye ars (1 of 1 - PCV) 2013 Zoster Vaccines (1 of 2) 2013 COVID-19 Vaccine ( - 2024-2 6 season) 2025 Influenza Adult (#1) 2025 RSV Immunization or 60+ Years (1 - 1-dose 75+ series) 2038 Hepatitis A Vaccines Aged Out No long er eligible based on patient's age to complete this topic Meningococcal B Vaccine Aged Out No l onger eligible based on patient's age to complete this topic Meningococcal Vaccine Aged Out No sparkle lalo eligible based on patient's age to complete this topic RSV Immunizations Under 20 Months Aged Out No longer eligible based on patient's age to complete this topic Insurance Care Teams Ict Security Specialist Relationship Specialty Start Date End Date Abbe Duff MD [address] [place] [address] PCP - General 05/09/16
== END 2025-06-02 14:03 | disposition home or self-care (01) ==
PROVIDERS: Emergency Provider Emergency Medicine; PCP Nurse Practitioner
DX: S60.221A Contusion of right hand, initial encounter (principal); Z87.891 Personal history of nicotine dependence; W23.0XXA Caught, crushed, jammed, or pinched between moving objects, initial encounter
CPT/HCPCS: 73120; 99283